=== PATIENT | female | born 1965 | race Caucasian/White ===

== ENCOUNTER → 2018-05-01 | Day surgery (SDC) | payer OTHER ==
[2018-04-28 12:54] LABS: BASOPHILS % 0.4 % (0.0-1.0); EOSINOPHILS # (AUTO) 0.4 (0.0-0.4); HEMATOCRIT 46.1 % (34.2-44.1); HEMOGLOBIN 14.4 g/dL (12.0-16.0); LYMPHOCYTES # (AUTO) 2.9 (1.0-3.2); LYMPHOCYTES % 31.5 % (18.0-39.1); MEAN CORPUSCULAR HEMOGLOBIN 28.6 pg (28-32); MEAN CORPUSCULAR HGB CONC 31.2 g/dL (31-35); MEAN CORPUSCULAR VOLUME 91.5 fL (81-99); MONOCYTES # (AUTO) 0.9 (0.2-0.8); MONOCYTES % 9.4 % (4.4-11.3); NEUTROPHILS # (AUTO) 5.1 (2.1-6.9); NEUTROPHILS % 54.4 % (38.7-80.0); PLATELET COUNT 226 x10e3/uL (140-360); RED BLOOD COUNT 5.04 x10e6/uL (3.6-5.1); RED CELL DISTRIBUTION WIDTH 13.7 % (11.7-14.4)
[2018-04-28 13:18] LABS: ANION GAP 12.1 mmol/L (8-16); BLOOD UREA NITROGEN 13 mg/dL (7-26); BUN/CREATININE RATIO 19 (6-25); CALCIUM 10.1 mg/dL (8.4-10.2); CARBON DIOXIDE 30 mmol/L (22-29); CHLORIDE 102 mmol/L (98-107); CREATININE, SERUM 0.69 mg/dL (0.57-1.11); EST GLOMERULAR FILTRATION RATE > 60 ML/MIN (60-); GLUCOSE 115 mg/dL (74-118); POTASSIUM 4.1 mmol/L (3.5-5.1); SODIUM 140 mmol/L (136-145)
--- NOTE | 2018-04-28 13:37 | Diagnostic Imaging Report ---
EXAMINATION: PA and lateral views of the chest. COMPARISON: Single AP chest 06/17/2017 CLINICAL HISTORY: Preoperative surgical DISCUSSION: Lines/tubes: None. Lungs: The lungs are well inflated and clear. There is no evidence of pneumonia or pulmonary edema. Pleura: There is no pleural effusion or pneumothorax. Heart and mediastinum: Cardiomediastinal silhouette is unremarkable. Pulmonary vasculature is normal. Bones and soft tissues: No acute bony abnormalities. Degenerative changes in the thoracic spine IMPRESSION: No acute cardiopulmonary abnormalities. Signed by: Dr. Shan Echevarria M.D. on 04/28/2018 1:33 PM
[~2018-05-01] MED LIST: ASPIRIN BUFFER325 MG PO; AZITHROMYCIN250 MG; BUPIVACAINE HCL 0.5% 10ML MPF VIAL INJ ONE; BYSTOLIC5 MG PO; DEXAMETHASONE SOD PHOS INJ 4 MG/ML VIAL ONE; FENTANYL CITRATE/PF 100MCG/2 ML INJ ONE; GLYCOPYRROLATE INJ 1MG/ 5 ML SYR ONE; HYDROCHLOROTHIA25 MG PO; LIDOCAINE HCL 2% LOCAL INJ 5 ML SDV VIAL INJ ONE; LISINOPRIL40 MG PO; MIDAZOLAM HCL 2 MG/2 ML VIAL ONE; NEOSTIGMINE 1 MG/ML 10ML VIAL ONE; NEOSTIGMINE 5 MG/5ML SYR ONE; ONDANSETRON HCL INJ 2 MG/ML VIAL ONE; PREDNISONE10 MG PO; PROPOFOL IV EMULSION 10 MG/ML 20 ML VIAL ONE; RANEXA500 MG PO; ROCURONIUM BROMIDE 10 MG/ML 5ML VIAL ONE; SEVOFLURANE INHAL SOLN 250 ML PEN BTL ONE; SUCCINYLCHOLINE 200 MG/10 ML SYR ONE
[2018-05-01] MEDS: CEFAZOLIN SOD 2 GM/D5W 50ML 50 ML IV ONE (08:08)
[2018-05-01 12:30] VITALS: BP 109/62
--- NOTE | 2018-05-06 12:44 | Operative Report ---
DATE OF PROCEDURE: May 01, 2018 PREOPERATIVE DIAGNOSES 1. Retrocalcaneal exostosis of the right foot. 2. Partially ruptured Achilles tendon, right foot, with contracture of the gastrocnemius soleus complex, right foot. ANESTHESIA: General endotracheal. HEMOSTASIS: A right thigh tourniquet at 350 mmHg. POSTOPERATIVE DIAGNOSES 1. Retrocalcaneal exostosis of the right foot. 2. Partially ruptured Achilles tendon, right foot, with contracture of the gastrocnemius soleus complex, right foot. TITLE OF OPERATION 1. Retrocalcaneal exostectomy of the right foot. 2. Repair of ruptured Achilles tendon, right foot, with reimplantation. 3. Gastrocnemius recession, right foot. ANESTHESIA: General endotracheal. HEMOSTASIS: A right thigh tourniquet at 350 mmHg. PROCEDURE IN DETAIL: The patient was taken to the operating room in a mildly sedated state and placed upon the operating table in the supine position. A prone turn was then accomplished, and the foot and leg were prepped and draped in the usual aseptic manner utilizing Betadine prep. Right lower extremity was placed upon the operating table prior to performing the following procedures: Procedure #1: Retrocalcaneal exostectomy of the right foot. A curvilinear posterior incision was made from proximal lateral to distal medial aspect of the right posterior heel. The incision was approximately 6 cm long and was deepened via sharp and blunt dissection down to the level of the Achilles tendon on the posterior aspect of the heel. With the appropriate retraction, all superficial bleeders were electrocoagulated. The synovium of the tendon was opened to expose the partially ruptured Achilles, which was then reflected from the posterior heel. This having been accomplished, all enthesopathy within the calcaneus was resected, and it was noted that there was a significant contracture of the Achilles. The posterior heel was showing very large prominence. Utilizing an osteotome and mallet, the posterior heel was resected. The area was irrigated with copious amounts of sterile saline solution. Reimplantation of the tendon utilizing an Arthrex anchor was then performed with #2 FiberWire. The surrounding tissues were further sutured and tendon repaired with FiberWire as well. This was done with the foot in a plantarflexed position. In order to achieve a neutral position then, a gastrocnemius soleus complex elongation was sought. The distal closure was irrigated and closed with 3-0 Vicryl and 4-0 nylon. Human tissue allograft was applied in a sheet over the repaired tendon prior to closure. The gastrocnemius recession was then performed through a separate incision. An approximate 2-cm incision in the posterior aspect of the gastrocnemius soleus complex in the proximal portion of the leg was performed. A linear incision was performed and then a transverse Sterling procedure allowed for elongation of the gastroc complex. That area was irrigated and closed with 3-0 Vicryl and 4-0 nylon. All superficial bleeders were electrocoagulated. All deep structures were reflected from harm's way. This having been accomplished, the areas of surgery were blocked with a combination 0.5 Marcaine and Decadron LA. Release of the pneumatic thigh tourniquet showed a normal hyperemic flush to all digits of the right foot. A posterior splint was applied with the foot in neutral position, and the patient left the operating room with vital signs stable and in apparent satisfactory condition, having tolerated both the anesthetic and the procedure very well. Job#: [id number]
--- OUTSIDE RECORDS SUMMARY | 2018-05-21 07:55 | XMS REPORT | Clinical Summary ---
Author Author [facility] Address Unknown Phone Unavailable Care Team Providers Care Document Image Technician Name Role Phone Cong Edward PCP Allergies Active Allergy Reactions Severity Noted Date Comments Prochlorperazine Other (See Comments) 02/13/2018 lethergy Current Medications Prescription Sig. Disp. Refills Start End Date Status Date lisinopril Take 40 mg by mouth Active (PRINIVIL,ZESTRIL) 40 mg daily. tablet traMADol (ULTRAM) 50 mg Take 50 mg by mouth every Active tablet 6 (six) hours as needed for moderate pain. buPROPion XL (WELLBUTRIN Take 150 mg by mouth Active XL) 150 MG 24 hr tablet daily. Active Problems Problem Noted Date Nuclear sclerotic cataract of left eye 02/17/2018 Encounters Date Type Specialty Care Team Description 02/17/2018 [facility] General Surgery Blake White MD Nuclear sclerotic Encounter cataract of left eye (Primary Dx) 02/17/2018 Procedure Pass General Surgery 02/17/2018 Surgery General Surgery Blake White MD PHACOEMULSIFICATION, CATARACT, WITH IOL IMPLANTATION LEFT EYE 02/16/2018 Anesthesia General Surgery Talat Brownlee Event MD Vitaliy after 04/30/2017 Social History Tobacco Use Types Packs/Day Years Used Date Current Every Day Smoker 0.25 Started: 02/13/1982 Smokeless Tobacco: Never Used Alcohol Use Drinks/Week oz/Week Comments No Sex Assigned at Date Recorded Not on file Last Filed Vital Signs Vital Sign Reading Time Taken Blood Pressure 131/59 02/17/2018 9:25 AM CDT Pulse 78 02/17/2018 9:25 AM CDT Temperature 36.1 C (97 F) 02/17/2018 9:20 AM CDT Respiratory Rate 16 02/17/2018 9:20 AM CDT Oxygen Saturation 92% 02/17/2018 9:25 AM CDT Inhaled Oxygen - - Concentration Weight 170 kg (374 lb 12.8 oz) 02/17/2018 7:15 AM CDT Height 172.7 cm (5' 8") 02/17/2018 7:47 AM CDT Body Mass Index 56.99 02/17/2018 7:15 AM CDT Plan of Treatment Not on file Implants Implanted Type Area Cardiology Clinical Nurse Specialist Device Expiration Model / Identifier Date Serial / Lot Lens Ascrysof Aspheric Uv Absorbing Intraocula Left: Eye TALAT 2022 [id number] 22.0.Od 13mmx6.0mm - [id number] - r [employer] / [id number] [employer] [id number] Implanted: Qty: 1 on 02/17/2018 by Blake Yan MD [id number] Procedures Procedure Name Priority Date/Time Associated Diagnosis Comments PHACOEMULSIFICATION, 02/17/2018 Age-related nuclear CATARACT, WITH IOL 8:10 AM CDT cataract of left eye IMPLANTATION Special Needs SA60WF + 22.0Prolen e 10-0 on a CTC-6L Needle after 04/30/2017 Results Not on fileafter 04/30/2017 Insurance Payer Benefit Subscriber ID Type Phone Address Plan / Group AETNA AETNA xxxxxxxxx HMO HMO,POS,EP O, [place] [address]
--- OUTSIDE RECORDS SUMMARY | 2018-05-21 07:55 | XMS REPORT ---
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 Allergies, Adverse Reactions, Alerts This patient has no known allergies or adverse reactions. Medications This patient has no known medications. Results Test Description Test Time Test Comments Text Results Atomic Results Result Comments CHEST 2 VIEWS 2018-04-28 13:18:00 [place] [address] Patient Name: EDMUND FLORES MR #: [id number] : 1965 Age/Sex: 52/F Req #: [id number] [facility] Physician: Ordered by: GREGORIA GLASGOW DP Report #: [id number] Location: OR Room/Bed: Procedure: [id number] DX/CHEST 2 VIEWS Exam Date: 04/28/18 Exam Time: 1255 REPORT STATUS: Signed EXAMINATION: PA and lateral views of the chest. COMPARISON: Single AP chest 06/17/2017 CLINICAL HISTORY: Preoperative surgical DISCUSSION: Lines/tubes : None. Lungs: The lungs are well inflated and clear. There is no evidence of pneumonia or pulmonary edema. Pleura: There is no pleural effusion or pneumothorax. Heart and mediastinum: Cardiomediastinal silhouette is unremarkable. Pulmonary vasculature is normal. Bones and soft tissues: No acute bony abnormalities. Degenerative changes in the thoracic spine IMPRESSION: No acute cardiopulmonary abnormalities. Signed by: Dr. Luis Echevarria M.D. on 04/28/2018 1:33 PM Dictated By: LUIS ECHEVARRIA MD 32 Transcribed By: FILOMENA on 04/28/181332 COPY TO: GREGORIA GLASGOW DPYaya CHEST SINGLE (PORTABLE) [place] [address] Patient Name: EDMUND FLORES MR #: [id number] : 1965 Age/Sex: 51/F Req #: [id number] Adm Physician: Ordered by: VIRGINIA ESTEBAN MD Report #: [id number] Location: ER Room/Bed: Procedure: [id number] DX/CHEST SINGLE (PORTABLE) Exam Date: 06/17/17 Exam Time: 1900 REPORT STATUS: Signed A single frontal view of the chest. HISTORY: Chest pain COMPARISON: Chest radiograph August 11, 2012. DISCUSSION: Portable technique, limits sensitivity of the exam. Soft tissue attenuation partially limits sensitivity of the exam. Overlying monitoring leads. Tubes/Lines: None Lungs and pleura: Stable left upper lung scarring versus calcified granuloma. No evidence of a consolidative pneumonia or pulmonary alveolar edema. No definite pleural effusion or pneumothorax is identified. Heart and mediastinum: The cardiomediastinal silhouette appears unremarkable. Bones: No acute osseous lesion is identified, given this limited exam. IMPRESSION: 1. No acute radiographic abnormality. 2. No significant interval change. Signed by: Dr. Griffin Quintana M.D. on 06/17/2017 7:56 PM Dictated By: GRIFFIN QUINTANA DO 53 Transcribed By: FILOMENA on 06/17/171955 COPY TO: VIRGINIA ESTEBAN MD
== END | disposition home or self-care (01) ==
LOC: OR 07:20
PROVIDERS: ATTEND Podiatrist Foot Surgery
DX: M77.31 Calcaneal spur, right foot (principal); M66.871 Spontaneous rupture of other tendons, right ankle and foot; M24.574 Contracture, right foot; G47.33 Obstructive sleep apnea (adult) (pediatric); I10 Essential (primary) hypertension; K21.9 Gastro-esophageal reflux disease without esophagitis; F17.210 Nicotine dependence, cigarettes, uncomplicated; Z88.8 Allergy status to other drugs, medicaments and biological substances; Z01.810 Encounter for preprocedural cardiovascular examination; Z01.812 Encounter for preprocedural laboratory examination; Z01.818 Encounter for other preprocedural examination
CPT/HCPCS: 36415; 71046; 76001; 80048; 85025; 88304; 88305; 88311; 93005; J1100; J2001; J2250; J2405; J2710; Q4100